=== PATIENT | female | born 1955 | race Caucasian/White ===

== ENCOUNTER → 2020-02-19 | Outpatient (CLI) | payer MEDICARE, OTHER | LOC: M.LAB 09:34 | PROVIDERS: ATTEND Orthopaedic Surgery | DX: Z01.818 Encounter for other preprocedural examination (principal); M19.011 Primary osteoarthritis, right shoulder; M75.120 Complete rotator cuff tear or rupture of unspecified shoulder, not specified as traumatic; Z11.59 Encounter for screening for other viral diseases ==